=== PATIENT | female | born 1940 | race Caucasian/White ===

== ENCOUNTER 2016-07-14 17:56 | Emergency (ER) | payer OTHER ==
--- NOTE | 2016-07-14 18:09 | CPEKG ---
Heart Rate: 65 RR Interval: 923 P-R Interval: 172 QRSD Interval: 82 QT Interval: 456 QTC Interval: 475 P [place]: 57 QRS [place]: 25 T Wave [place]: 50 EKG Severity - OTHERWISE NORMAL ECG - EKG Impression: SINUS RHYTHM EKG Impression: ATRIAL PREMATURE COMPLEX Electronically Signed By: Dewayne Santa 14-Jul-2016 18:48:28
[2016-07-14] MEDS ORDERED: IOPAMIDOL (ISOVUE 370) 100 ML BTL IV ONE (18:18)
[2016-07-14 18:33] LABS: % IMMATURE GRANULYOCYTES 0.2 % (0.0-1.1); ABSOLUTE IMMATURE GRANULOCYTES 0.01 10^3/uL (0.00-0.10); ADD DIFF? NO; ADD MORPH? NO; ADD SCAN? NO; ATYPICAL LYMPHOCYTE FLAG 10 (0-99); FRAGMENT RBC FLAG 0 (0-99); HEMATOCRIT 40.3 % (38.0-47.0); HEMOGLOBIN 13.7 g/dL (12.6-16.3); LEFT SHIFT FLG 0 (0-99); LIPEMIA HEMOLYSIS FLAG 90 (0-99); MEAN CELL VOLUME 97.1 fL (81.5-99.8); MEAN PLATELET VOLUME 10.4 fL (8.7-11.7); PLATELET CLUMPS FLAG 0 (0-99); PLATELET COUNT 225 10^3/uL (150-400); RED BLOOD CELL COUNT 4.15 10^6/uL (4.18-5.33); RED CELL DISTRIBUTION WIDTH 12.5 % (11.5-15.2)
[2016-07-14 18:59] LABS: ANION GAP 10 mEq/L (8-16); CARBON DIOXIDE 24 mEq/l (22-31); CHLORIDE 102 mEq/L (97-110); CREATININE 0.8 mg/dL (0.6-1.0); GLOMERULAR FILTRATION RATE > 60; GLUCOSE 91 mg/dL (70-100); POTASSIUM 4.2 mEq/L (3.5-5.2); SODIUM 136 mEq/L (134-144)
[2016-07-14 19:09] LABS: TROPONIN I < 0.012 ng/mL (0-0.034)
--- NOTE | 2016-07-14 22:29 | CPEKG ---
Heart Rate: 62 RR Interval: 968 QRSD Interval: 82 QT Interval: 444 QTC Interval: 451 QRS [place]: 18 T Wave [place]: 47 EKG Severity - ABNORMAL ECG - EKG Impression: NORMAL SINUS RHYTHM Electronically Signed By: Alessio Magallanes 15-Jul-2016 14:44:30
--- NOTE | 2016-07-14 22:29 | EDPHY ---
H & P Stated Complaint: Upper CP into throat, radiates to back MATHEMATICS PROFESSOR; mainly resolved now Time Seen by Provider: 07/14/16 17:58 HPI/ROS: Chief complaint: Esophageal spasms History of present illness: This is a very pleasant 75-year-old female who presents to the emergency department for what she believes is esophageal spasms. Patient reports the onset of symptoms earlier this evening. She reports discomfort in the upper aspect of her chest and the bottom of her neck. She states the pain is also in her upper back radiating down it. She described it as somewhat squeezing. Initially it was quite intense and persistent. It has slowly improved becoming less constant and occurring less often. She now reports symptoms have essentially resolved with only minor soreness. She denies precipitating factors. She did eat some carrots while symptoms were occurring and this helped alleviate symptoms somewhat. She denies other alleviating or aggravating factors. Patient denies other associated signs or symptoms. She continue to be able to swallow, no cough, no trouble breathing, no other chest discomfort. Patient reports approximately 8 years ago she had esophageal spasms and this feels similar. She did have an endoscopy after her 1st episode and there was concern for esophageal strictures. Review of systems: A 10 point review of systems was obtained and other than described above was negative - Personal History Current Tetanus Diphtheria and Acellular Pertussis (TDAP): Yes - Medical/Surgical History Other PMH: esophageal spasms. hyperlipidemia - Social History Smoking Status: Never smoked - Physical Exam Exam: General Appearance: Alert, nontoxic. Eyes: Pupils equal and round no pallor or injection. ENT, Mouth: Mucous membranes moist. No hoarseness, no drooling, no stridor, no trismus. Respiratory: Patient is talking in full sentences. No use of accessary muscles. Lungs clear to auscultation. Cardiovascular: Regular rate and rhythm. Gastrointestinal: Abdomen is soft and nontender, no masses, bowel sounds normal. Neurological: Alert and oriented. Strength and sensation intact and symmetrical. Skin: Warm and dry, no rashes. Musculoskeletal: Neck is supple nontender. Extremities are symmetrical, full range of motion. Psychiatric: Patient is oriented X 3, there is no agitation. Constitutional: Initial Vital Signs Temperature (C) 36.9 C 07/14/16 17:56 Heart Rate 67 07/14/16 17:56 Respiratory Rate 18 07/14/16 17:56 Blood Pressure 121/79 H 07/14/16 17:56 O2 Sat (%) 99 07/14/16 17:56 O2 Delivery Mode Room Air Allergies/Adverse Reactions: No Known Allergies Allergy (Unverified 08/19/10 21:52) Home Medications: Medication Instructions Recorded Levothyroxine Sodium [Synthroid] 50 mcg PO 08/19/10 SIMVASTATIN [Zocor] 0 mg PO DAILY 08/19/10 Medical Decision Making - Diagnostics Imaging Results: Imaging Impressions Chest/Thorax CTA 07/14/16 18:13 Impression: 1. No visible etiology for the patient's symptoms. 2. Additional findings, as above. Findings discussed with HERNÁN Reed, on July 14, 2016 at 1942 hours. E:amm Imaging: Discussed imaging studies w/ call manager Radiologist ED Course/Re-evaluation: Patient was discussed with my secondary supervising physician Dr. Dewayne Santa. Patient presented to the emergency department for what she believed was esophageal spasms. She had a previous history of spasms that felt similar. On presentation she was nontoxic. Vital signs were stable. Physical exam was benign. Evaluation was undertaken to ensure no other concerning underlying pathology was present. Baseline blood studies including CBC, chemistry and troponin were unremarkable. EKG was further unremarkable. Given back pain a CT angiogram was performed and negative for acute findings. Given the recent onset of symptoms serial EKG and troponin were performed to evaluate for evolving pathology, these remained unremarkable. This does sound esophageal in nature. My suspicion for other serious pathology is low. I believe she is appropriate for outpatient management. Patient was discharged home. She was asked to follow up with her primary care doctor for further evaluation and care. Return precautions were given. Patient voiced understanding and agreement with plan. However, she was not happy with general written discharge instructions provided. I did discuss with her that discharge instructions are usually general in nature. I again reviewed with her what her complaint was and how and why we evaluated her as we did and she voiced agreement with it and appeared satisfied. Again I discussed with her she needs to follow up with her primary care doctor for further care. Differential Diagnosis: Included but not limited to esophageal spasms, reflux disease, musculoskeletal pain, cardiac dysrhythmia, ACS pulmonary embolism, pneumothorax, pulmonary infections great vessel disease - Data Points Laboratory Results: Laboratory Results 07/14/16 18:15 05/08/17 18:15 07/14/16 07/14/16 07/14/16 22:10 18:15 18:15 WBC 5.14 10^3/uL 10^3/uL (3.80-9.50) RBC 4.15 10^6/uL L 10^6/uL (4.18-5.33) Hgb 13.7 g/dL g/dL (12.6-16.3) Hct 40.3 % % (38.0-47.0) MCV 97.1 fL fL (81.5-99.8) MCH 33.0 pg pg (27.9-34.1) MCHC 34.0 g/dL g/dL (32.4-36.7) RDW 12.5 % % (11.5-15.2) Plt Count 225 10^3/uL 10^3/uL (150-400) MPV 10.4 fL fL (8.7-11.7) Neut % (Auto) 44.7 % % (39.3-74.2) Lymph % (Auto) 43.0 % % (15.0-45.0) [place] % (Auto) 8.8 % % (4.5-13.0) Eos % (Auto) 2.3 % % (0.6-7.6) Baso % (Auto) 1.0 % % (0.3-1.7) Nucleat RBC Rel Count 0.0 % % (0.0-0.2) Absolute Neuts (auto) 2.30 10^3/uL 10^3/uL (1.70-6.50) Absolute Lymphs (auto) 2.21 10^3/uL 10^3/uL (1.00-3.00) Absolute Monos (auto) 0.45 10^3/uL 10^3/uL (0.30-0.80) Absolute Eos (auto) 0.12 10^3/uL 10^3/uL (0.03-0.40) Absolute Basos (auto) 0.05 10^3/uL 10^3/uL (0.02-0.10) Absolute Nucleated RBC 0.00 10^3/uL 10^3/uL (0-0.01) Immature Gran % 0.2 % % (0.0-1.1) Immature Gran # 0.01 10^3/uL 10^3/uL (0.00-0.10) Sodium 136 mEq/L mEq/L (134-144) Potassium 4.2 mEq/L mEq/L (3.5-5.2) Chloride 102 mEq/L mEq/L (97-110) Carbon Dioxide 24 mEq/l mEq/l (22-31) Anion Gap 10 mEq/L mEq/L (8-16) BUN 21 mg/dL mg/dL (7-23) Creatinine 0.8 mg/dL mg/dL (0.6-1.0) Estimated GFR > 60 Glucose 91 mg/dL mg/dL (70-100) Calcium 9.0 mg/dL mg/dL (8.5-10.4) Troponin I < 0.012 ng/mL ng/mL < 0.012 ng/mL ng/mL (0-0.034) (0-0.034) Departure - Departure Disposition: Home, Routine, Self-Care Clinical Impression: Chest pain Qualifiers: Chest pain type: unspecified Qualified Code(s): R07.9 - Chest pain, unspecified Back pain Qualifiers: Back pain location: back pain in unspecified location Chronicity: acute Back pain laterality: unspecified Qualified Code(s): M54.9 - Dorsalgia, unspecified Condition: Good Instructions: Chest Pain (ED) Additional Instructions: Follow-up with your primary care doctor tomorrow for recheck If symptoms worsen or new symptoms develop return to the emergency room for recheck Referrals: Agatha Hooker MD [Primary Care Provider] - As per Instructions
[2016-07-14 23:50] VITALS: BP 117/74; PULSE 66; RESP 20; TEMP 98.2; O2SAT 94
== END 2016-07-14 23:50 | disposition home or self-care (01) ==
DX: R07.9 Chest pain, unspecified (principal); M54.9 Dorsalgia, unspecified
CPT/HCPCS: 71275; 93005; 99285; Q9967

== ENCOUNTER → 2016-08-21 | Outpatient (CLI) | payer OTHER | LOC: CIMAGING 08:46 | PROVIDERS: ATTEND Internal Medicine Gastroenterology | DX: R10.13 Epigastric pain (principal); R12 Heartburn; R06.89 Other abnormalities of breathing | CPT/HCPCS: 76705-PO ==

== ENCOUNTER → 2016-12-02 | Outpatient (CLI) | payer OTHER | LOC: BMCIMAGING 14:07 | PROVIDERS: ATTEND Internal Medicine Endocrinology, Diabetes & Metabolism | DX: M81.0 Age-related osteoporosis without current pathological fracture (principal); E04.1 Nontoxic single thyroid nodule | CPT/HCPCS: 76536-PO ==

== ENCOUNTER → 2017-03-31 | Outpatient (CLI) | payer OTHER | LOC: BMCIMAGING 16:28 | PROVIDERS: ATTEND Emergency Medicine | DX: R07.89 Other chest pain (principal) ==

== ENCOUNTER → 2017-12-03 | Outpatient (CLI) | payer OTHER | LOC: BMCIMAGING 14:05 | PROVIDERS: ATTEND Internal Medicine Endocrinology, Diabetes & Metabolism | DX: Z13.820 Encounter for screening for osteoporosis (principal); M81.0 Age-related osteoporosis without current pathological fracture; E04.1 Nontoxic single thyroid nodule | CPT/HCPCS: 76536-PO ==